=== PATIENT | female | born 1995 | race African-American/Black ===

== ENCOUNTER 2017-12-21 22:49 | Emergency (ER) | payer OTHER ==
[~2017-12-21] VITALS: Ht 157.5 cm; Wt 61.9 kg
[2017-12-21 22:53] VITALS: BP 117/56; PULSE 68; RESP 16; TEMP 98.5; O2SAT 100
[2017-12-21] MEDS ORDERED: SODIUM CHLOR 0.9% 1000 ML INJ 1,000 ML IV SCH (23:11)
[2017-12-21] MEDS ORDERED: SODIUM CHLORIDE 0.9% FLUSH 10 ML FLUSH IV FLUSH PRN (23:15)
[2017-12-21 23:26] VITALS: BP 117/69; PULSE 66; RESP 16; O2SAT 100
--- NOTE | 2017-12-21 23:29 | PD ---
HPI Chief Complaint: Flank/Kidney Pain Time Seen by Provider: 23:11 Travel History International Travel<30 days: Yes Contact w/Intl Traveler<30days: Yes Name of Country Traveled to: [facility] Traveled to known affect area: No History of Present Illness HPI 22-year-old female presents to the emergency department by private transportation the care of her significant other for evaluation of right-sided abdominal pain and right flank 1 week with progressive worsening. No fever no chills no nausea no vomiting no anorexia no dysuria frequency urgency or vaginal discharge. Last menstrual period was December 07 and normal for her. Patient denies . Patient notes pain is worsened by ambulation. Patient denies any injury or fall. No lower extremity pain or swelling. Patient does not take control pills. No prior history of kidney stones. Denies history of ovarian cysts. No previous . The patient rates her pain 8/10 in intensity. Patient has used ibuprofen with minimal symptom relief. PFSH Past Medical History Narrative Medical Per patient negative past medical history negative surgical history no tobacco use; nursing notes reviewed Medical History: Denies Significant Hx Diminished Hearing: No Tetanus Vaccination: Unknown Influenza Vaccination: No ?: Not LMP: 12/07/17 Past Surgical History Surgical History: No Previous Surgery Social History Alcohol Use: Yes (Occ) Tobacco Use: No Substance Use: No Allergies-Medications (Allergen,Severity, Reaction): Coded Allergies: Penicillins (Verified Allergy, Severe, CHILDHOOD WARNING, 12/21/17) ciprofloxacin (Verified Allergy, Severe, ANGIOEDEMA, 12/21/17) Reported Meds & Prescriptions Reported Meds & Active Scripts Active No Active Prescriptions or Reported Medications Review of Systems Except as stated in HPI: all other systems reviewed are Neg General / Constitutional: No: Fever, Chills HENT: No: Congestion Cardiovascular: No: Chest Pain or Discomfort Respiratory: No: Shortness of Breath Gastrointestinal: Positive: Abdominal Pain, No: Nausea, Vomiting Genitourinary: Positive: Flank Pain, No: Dysuria, Pelvic Pain, Discharge, Vaginal Bleeding Musculoskeletal: No: Myalgias, Arthralgias Skin: No Rash Neurologic: No: Weakness Psychiatric: No: Anxiety Endocrine: No: Heat Intolerance Hematologic/Lymphatic: No: Easy Bruising Physical Exam Narrative GENERAL: Well-developed well-nourished female no acute distress or respiratory distress SKIN: Warm and dry. HEAD: Normocephalic. EYES: No scleral icterus. No injection or drainage. NECK: Supple, trachea midline. No JVD or lymphadenopathy. CARDIOVASCULAR: Regular rate and rhythm without murmurs, gallops, or rubs. RESPIRATORY: Breath sounds equal bilaterally. No accessory muscle use. GASTROINTESTINAL: Abdomen soft, non-tender, nondistended. Abdomen is nontender to direct palpation and no guarding or rebound is noted MUSCULOSKELETAL: No cyanosis, or edema. BACK: Nontender without obvious deformity. No CVA tenderness. Data Data Last Documented VS Vital Signs Date Time Temp Pulse Resp B/P (MAP) Pulse Ox O2 Delivery O2 Flow Rate FiO2 12/22/17 00:50 62 18 108/60 (76) 100 Room Air 12/21/17 22:53 98.5 Orders Orders Complete Blood Count With Diff (12/21/17 23:11) Comprehensive Metabolic Panel (12/21/17 23:11) Lipase (12/21/17 23:11) Urinalysis - C+S If Indicated (12/21/17 23:11) Iv Access Insert/Monitor (12/21/17 23:11) Ecg Monitoring (12/21/17 23:11) Oximetry (12/21/17 23:11) Sodium Chlor 0.9% 1000 Ml Inj (Ns 1000 M (12/21/17 23:11) Sodium Chloride 0.9% Flush (Ns Flush) (12/21/17 23:15) Ed Urine Pregnancytest Poc (12/21/17 23:11) Ct Abd/Pel W/O Iv Contrast (12/22/17 ) Ketorolac Inj (Toradol Inj) (12/22/17 00:30) Ed Discharge Order (12/22/17 02:05) Labs Laboratory Tests Test 12/21/17 23:20 White Blood Count 6.7 TH/MM3 Red Blood Count 3.94 MIL/MM3 Hemoglobin 12.0 GM/DL Hematocrit 34.2 % Mean Corpuscular Volume 86.8 FL Mean Corpuscular Hemoglobin 30.5 PG Mean Corpuscular Hemoglobin Concent 35.2 % Red Cell Distribution Width 14.0 % Platelet Count 195 TH/MM3 Mean Platelet Volume 9.8 FL Neutrophils (%) (Auto) 39.0 % Lymphocytes (%) (Auto) 51.4 % Monocytes (%) (Auto) 6.7 % Eosinophils (%) (Auto) 1.1 % Basophils (%) (Auto) 1.8 % Neutrophils # (Auto) 2.6 TH/MM3 Lymphocytes # (Auto) 3.5 TH/MM3 Monocytes # (Auto) 0.4 TH/MM3 Eosinophils # (Auto) 0.1 TH/MM3 Basophils # (Auto) 0.1 TH/MM3 CBC Comment DIFF FINAL Differential Comment Urine Color YELLOW Urine Turbidity CLEAR Urine pH 5.5 Urine Specific Adel GREATER/EQUAL 1.030 Urine Protein NEG mg/dL Urine Glucose (UA) NEG mg/dL Urine Ketones NEG mg/dL Urine Occult Blood NEG Urine Nitrite NEG Urine Bilirubin NEG Urine Urobilinogen 0.2 MG/DL Urine Leukocyte Esterase NEG Urine RBC 0-3 /hpf Urine WBC 0-2 /hpf Urine Squamous Epithelial Cells > 8 /hpf Microscopic Urinalysis Comment CULT NOT INDICATED Blood Urea Nitrogen 10 MG/DL Creatinine 0.65 MG/DL Random Glucose 93 MG/DL Total Protein 7.3 GM/DL Albumin 3.7 GM/DL Calcium Level 9.0 MG/DL Alkaline Phosphatase 83 U/L Aspartate Amino Transf (AST/SGOT) 24 U/L Alanine Aminotransferase (ALT/SGPT) 25 U/L Total Bilirubin 0.6 MG/DL Sodium Level 141 MEQ/L Potassium Level 3.6 MEQ/L Chloride Level 107 MEQ/L Carbon Dioxide Level 26.7 MEQ/L Anion Gap 7 MEQ/L Estimat Glomerular Filtration Rate 139 ML/MIN Lipase 92 U/L MDM Medical Decision Making Medical Screen Exam Complete: Yes Emergency Medical Condition: Yes Medical Record Reviewed: Yes Interpretation(s) poc hcg: negative ua: grossly wnl Last Impressions Abdomen/Pelvis CT 12/22/17 0000 Signed Impressions: Service Date/Time: Friday, December 22, 2017 00:44 - CONCLUSION: Normal examination. Olu Braxton Jr., MD CBC & BMP Diagram 12/21/17 23:20 Total Protein 7.3, Albumin 3.7, Calcium Level 9.0, Alkaline Phosphatase 83, Aspartate Amino Transf (AST/SGOT) 24, Alanine Aminotransferase (ALT/SGPT) 25, Total Bilirubin 0.6 Vital Signs Date Time Temp Pulse Resp B/P (MAP) Pulse Ox O2 Delivery O2 Flow Rate FiO2 12/22/17 00:50 62 18 108/60 (76) 100 Room Air 5/15/18 23:30 66 16 117/69 (85) 100 Room Air 12/21/17 23:26 66 16 117/69 (85) 100 Room Air 12/21/17 22:53 98.5 68 16 117/56 (76) 100 Differential Diagnosis Abdominal pain, renal colic, UTI, ovarian cyst, ruptured ovarian cyst, mittelschmerz, , musculoskeletal pain; also to consider but less likely atypical appendicitis ovarian torsion Narrative Course IV access obtained specimens collected and sent for resulting At 1:38 AM patient reports that she feels clinically improved CBC is automated differential mild lymphocytosis 51% otherwise values in normal range; metabolic panel grossly within normal limits; [id number] test is negative; urinalysis shows upper limit of normal specific gravity squamous epithelial cells but otherwise grossly normal range; CT abdomen and pelvis kidney stone protocol is negative for acute process. Patient informed of lab results patient reports that [facility] today she was told she has a UTI but urinalysis here shows no evidence for urine infection antibiotic therapy is not recommended at this time. Patient stable for outpatient management and follow-up with her primary care provider Diagnosis Primary Impression: Abdominal pain Qualified Codes: R10.31 - Right lower quadrant pain Referrals: Primary Care Physician 1 day Patient Instructions: General Instructions Departure Forms: School Release, Please excuse from school until (free text option): no school x 1 day Tests/Procedures Additional Instructions: Monitor temperature every 4 hours with thermometry take as needed acetaminophen/ Tylenol every 4 hours for fever 100.4F or greater May use ibuprofen 600 mg as often as every 6 hours as needed for pain associated with inflammation or greater than 5/10 intensity May use tramadol for pain greater than 6/10 in intensity No school 1 day Increase fluid hydration Return to the emergency department for concerns or change in condition or recurrent pain Follow-up with your primary care provider/clinic Med/Other Pt SpecificInfo: Prescription(s) given Scripts Tramadol (Tramadol) 50 Mg Tab 50 MG PO Q6H Y for PAIN, #5 TAB 0 Refills Prov: Vita Jiménez MD 12/22/17 Disposition: 01 DISCHARGE HOME Condition: Stable Vita Jiménez MD December 21, 2017 23:29
[2017-12-21 23:30] VITALS: BP 117/69; PULSE 66; RESP 16; O2SAT 100
[2017-12-21 23:44] LABS: BILIRUBIN, URINE NEG (NEG); BLOOD, URINE NEG (NEG); GLUCOSE,URINE NEG (NEG); KETONE, URINE NEG (NEG); NITRITE,URINE NEG (NEG); PH, URINE 5.5 (5.0-8.5); URINE COLOR YELLOW (YELLW/STRAW); URINE LEUKOCYTE ESTERASE NEG (NEG)
[2017-12-21 23:53] LABS: CHLORIDE 107 MEQ/L (98-107); SODIUM (NA) 141 MEQ/L (136-145)
[2017-12-21 23:56] LABS: AUTOMATED NEUTROPHIL # 2.6 TH/MM3 (1.8-7.7); BASOPHIL # 0.1 TH/MM3 (0-0.2); BASOPHIL % 1.8 % (0.0-2.0); EOSINOPHIL # 0.1 TH/MM3 (0-0.4); EOSINOPHIL % 1.1 % (0.0-4.0); HEMATOCRIT 34.2 % (35.0-46.0); LYMPH % 51.4 % (9.0-44.0); LYMPHOCYTE # 3.5 TH/MM3 (1.0-4.8); MEAN CELL VOLUME 86.8 FL (80.0-100.0); MEAN CORPUSCULAR HEMOGLOBIN 30.5 PG (27.0-34.0); MEAN CORPUSCULAR HGB CONC 35.2 % (32.0-36.0); MEAN PLATELET VOLUME 9.8 FL (7.0-11.0); MONO % 6.7 % (0.0-8.0); MONOCYTE # 0.4 TH/MM3 (0-0.9); PLATELET COUNT 195 TH/MM3 (150-450); RED BLOOD COUNT 3.94 MIL/MM3 (4.00-5.30); WHITE BLOOD COUNT 6.7 TH/MM3 (4.0-11.0)
[2017-12-21 23:57] LABS: ALBUMIN 3.7 GM/DL (3.4-5.0); BICARBONATE 26.7 MEQ/L (21.0-32.0); BLOOD UREA NITROGEN 10 MG/DL (7-18); GLUCOSE,RANDOM 93 MG/DL (74-106)
[2017-12-22] LABS: ALT (GPT) 25 U/L (10-53); AST (GOT) 24 U/L (15-37); CREATININE 0.65 MG/DL (0.50-1.00); GLOMERULAR FILTRATION RATE 139 ML/MIN (>89)
[2017-12-22 00:01] LABS: TOTAL BILIRUBIN ADULT 0.6 MG/DL (0.2-1.0); TOTAL PROTEIN 7.3 GM/DL (6.4-8.2)
[2017-12-22 00:03] LABS: ALKALINE PHOSPHATASE 83 U/L (45-117); RBC, URINE 0-3 /hpf (0-3); SQUAMOUS EPITHELIAL CELL URINE > 8 /hpf (0-5); WBC, URINE 0-2 /hpf (0-5)
[2017-12-22] MEDS ORDERED: KETOROLAC TROMETHAMINE 30 MG/ML (IVP) VIAL IV PUSH ONE (00:30)
[2017-12-22 00:50] VITALS: BP 108/60; PULSE 62; RESP 18; O2SAT 100
--- NOTE | 2017-12-22 01:15 | RADRPT ---
EXAM DATE/TIME: 12/22/2017 00:44 [facility] COMPARISON: No previous studies available for comparison. INDICATIONS : Right flank pain. ORAL CONTRAST: none RADIATION DOSE: 4.85 CTDIvol (mGy) MEDICAL HISTORY : None SURGICAL HISTORY : None. ENCOUNTER: Initial ACUITY: 1 week PAIN SCALE: 8/10 LOCATION: Right flank TECHNIQUE: Volumetric scanning of the abdomen and pelvis was performed. Using automated exposure control and ad justment of the mA and/or kV according to patient size, radiation dose was kept as low as reasonably achievable to obtain optimal diagnostic quality images. DICOM format image data is available electro nically for review and comparison. FINDINGS: LOWER LUNGS: The visualized lower lungs are clear. LIVER: Homogeneous density without lesion. There is no dilation of the biliary tree. No calcified gallston es. SPLEEN: Normal size without lesion. PANCREAS: Within normal limits. KIDNEYS: Normal in size and shape. There is no mass, stone, or hydronephrosis. ADRENAL GLANDS: Within normal limits. VASCULAR: There is no aortic aneurysm. BOWEL/MESENTERY: The stomach, small bowel, and colon demonstrate no acute abnormality. There is no free intraperitone al air or fluid. ABDOMINAL WALL: Within normal limits. RETROPERITONEUM: There is no lymphadenopathy. BLADDER: No wall thickening or mass. REPRODUCTIVE: Within normal limits. INGUINAL: There is no lymphadenopathy or hernia. MUSCULOSKELETAL: Within normal limits for patient age. CONCLUSION: Normal examination. Olu Braxton Jr., MD on December 22, 2017 at 1:11 Board Certified Radiologist. This report was verified electronically.
[2017-12-22 01:55] VITALS: RESP 16
[2017-12-22 02:05] VITALS: BP 117/76
[2017-12-22] MEDS ORDERED: TRAM50TA PO (02:06)
== END 2017-12-22 02:14 | disposition home or self-care (01) ==
LOC: PHED 22:49
DX: R10.31 Right lower quadrant pain (principal)
CPT/HCPCS: 74176; 80053; 81001; 83690; 84703; 85025; 96361; 96374; 99284; J1885; J7030